=== PATIENT | male | born 1995 | race Caucasian/White ===

== ENCOUNTER 2021-03-31 10:09 | Outpatient (CLI) | payer OTHER ==
[2021-04-01 23:32] VITALS: BP 100/60
--- NOTE | 2021-04-01 23:32 | SLEEP CARE CONSULTATION ---
Information from patient questionnaire entered by Tony Giles. I have reviewed and concur with the information entered by Tony Giles. This document represents the service I personally performed and the decisions made by me, Delmy Linda MD, [facility]. History of Present Illness Service Date and Time: 03/31/2021 1009 Reason for Visit: New patient Chief Complaint: reports: Unrefreshed sleep, Snoring, Observed pauses in breathing, Frequent awakenings at night Date of Onset: + 2 years Usual bedtime: 1000 PM Time it takes to fall asleep: Varies Snores at night: Yes Observed to quit breathing while asleep: Yes Sleeps alone due to snoring: No Reasons for waking at night: reports: Choking, Gasping for air, Other (Noise, consistent nightmares) Toss, Turn, or Twitch while sleeping: Yes Recalls having dreams: Yes Usually gets out of bed at: 630 - 730 Feels refreshed in the morning: No Morning headache: No Sleepy or fatigued during the day: Yes Ever fallen asleep while driving: No Takes day naps: No Dreams during day naps: Yes Prior sleep studies: No Additional HPI information: I had the pleasure of seeing Mr. Ovalle today regarding the possibility of him having a sleep disorder. As you know, he is a 25 year old gentleman who complains of insomnia, frequent awakenings, unrefreshed sleep, loud snore, and observed apneas. The patient tells me that he normally goes to bed around 10 pm, and it takes him approximately 30 minutes to fall asleep. He takes hydroxyzine. He has been told that he snores loudly and irregularly at night. He has also been observed to stop breathing in his sleep. He can recall waking up on the average of 3+ times during the night. Most of the time he wakes up because of nightmares. He has never awakened because of his own snoring, choking, and having or gasp for air. There is a lot of tossing and turning in his sleep. He has somniloquy (sleep talking) but not somnambulism (sleep walking). Generally he can recall having dreams including nightmares. In the morning he usually gets up out of the bed around 6:30 7:30 a.m. not feeling refreshed nor rested. He usually does not have a morning headache. During the day he complains of feeling sleepy and fatigued. His score on [place] Sleepiness Scale is 10 out of 24. He never has fallen asleep while driving nor has had any accident due to sleepiness. He usually does not take naps during the day. He reports occasionally having impaired concentration during the day. - Parasomnia Symptoms Ever been unable to move upon waking from sleep: Yes Ever felt weak in the knees when startled or emotional: No Bothered by creepy, crawly, restless sensations in legs: Yes (? 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 Patient is Single and lives in [place]. Have you smoked in the past 12 months: No Alcohol use: Yes Alcohol amount and frequency: 2-3, 1-2 times per month Caffeine use: No Allergies and Home Medications Drug allergies reviewed: Yes Home medication list reviewed: Yes Review of Systems Weight gain over past 5 years: 20 Cardiovascular: reports: high blood pressure, palpitations, leg or foot swelling Respiratory: denies: shortness of breath, wheeze, sputum production, chronic cough, other Gastrointestinal: reports: difficulty swallowing, diarrhea Urinary: denies: incontinence, frequency, urgency, impotence, other Neurological: denies: headaches, seizure, head trauma, disorientation, speech dysfunction, gait or balance problems, fainting or unconsciousness, other Psychiatric: reports: anxiety, depression Ear/Nose/Throat: reports: sinus problems Endocrine: denies: thyroid disease, history of goiter, sluggishness, too hot or cold, excessive thirst, increased appetite, increased urination, unexplained weakness, other Musculoskeletal: reports: neck pain, back pain Immunologic: reports: itching Physical Exam Vital signs obtained and entered by: Dr. Linda Blood Pressure: 100/60 Cuff size: regular Heart Rate: 80 O2 Saturation: 99 Height: 5 ft 8 in Weight: 180 lb Body Mass Index: 27.3 BMI Classification: Overweight Neck circumference: 15.5 Mood/affect: Normal HEENT: No craniofacial malformation Nostrils: patent to airflow Turbinates: normal Septum: midline Mouth and throat: narrow oropharynx Soft palate: long Hard palate: normal Uvula: normal Uvula visualization: 50% Mallampati Class II Tongue: normal in size Tonsils: small Chin and jaw: normal size and position Neck: normal w/o lymphadenopathy or thyromegaly Heart: regular rate and rhythm Impression and Plan IMPRESSION: 1. Obstructive Sleep Apnea-Hypopnea Syndrome, as suggested by history of loud and irregular snoring, observed cessation of breath while asleep, frequent awakenings during the night, unrefreshed sleep, cognitive impairment, and daytime hypersomnolence. Narrow oropharynx and obesity are common predisposing factors for obstructive sleep apnea-hypopnea syndrome. Untreated obstructive sleep apnea can also cause hypertension. I recommend proceeding to polysomnography to confirm the diagnosis and to assess severity. Due to the long waiting list for the in-laboratory polysomnography, a home sleep apnea test (HSAT) will first be conducted. Plan: 1. Schedule a home sleep apnea test (HSAT). 2. Avoid long distance driving or when feeling sleepy. 3. Avoid alcohol, sedative and muscle relaxant around bedtime. 4. Return for follow up after the test. Visit Type: In Office Time Spent with Patient (minutes): 15 Provider Statement: I spent 100% of the Face to Face Visit with the patient with greater than 50% spent counseling the patient and coordination of care.
== END 2021-03-31 10:10 | disposition home or self-care (01) ==
LOC: SC 10:09
PROVIDERS: ATTEND Internal Medicine Pulmonary Disease
DX: G47.10 Hypersomnia, unspecified (principal); R06.81 Apnea, not elsewhere classified; R06.83 Snoring; R41.89 Other symptoms and signs involving cognitive functions and awareness; G47.8 Other sleep disorders; E66.3 Overweight; Z68.27 Body mass index [BMI] 27.0-27.9, adult
CPT/HCPCS: 99202; 99212

== ENCOUNTER 2021-04-02 15:07 | Outpatient (CLI) | payer OTHER | END 2021-04-02 15:08 | disposition home or self-care (01) | LOC: SC 15:07 | PROVIDERS: ATTEND Internal Medicine Pulmonary Disease | DX: G47.10 Hypersomnia, unspecified (principal); R06.83 Snoring; R06.81 Apnea, not elsewhere classified; G47.8 Other sleep disorders; E66.3 Overweight; Z68.27 Body mass index [BMI] 27.0-27.9, adult | CPT/HCPCS: 95806 ==

== ENCOUNTER 2021-04-21 09:03 | Outpatient (CLI) | payer OTHER ==
--- NOTE | 2021-04-21 12:55 | SLEEP CARE CONSULTATION ---
Information from patient questionnaire entered by Tata Gonzalez. I have reviewed and concur with the information entered by Tata Gonzalez. This document represents the service I personally performed and the decisions made by me, Delmy Linda MD, [facility]. History of Present Illness Service Date and Time: 04/21/2021 09 Initial [place] Sleepiness Scale score: 10 (in 2020) Current [place] Sleepiness Scale score: 14 Additional HPI information: HPI: Mr. Ovalle returned for follow up of the sleep study he had on 04/02/21. The test showed no significant sleep-disordered breathing (AHI was 1.6). The patient slept mostly in prone position. He slept very little on his back and the supine AHI was 6.8. There was no hypoxemia. The patient was informed of these findings. I explained to him that the test was negative for sleep-disordered breathing except when he slept supine. He tells me that he does not sleep on his back. Sleep Study - Results Type of Sleep Study: Home sleep study Allergies and Home Medications Drug allergies reviewed: Yes Home medication list reviewed: Yes Review of Systems Review of systems same as previous: Yes Physical Exam Weight: 180 lb Impression and Plan IMPRESSION: 1. Insomnia, mild involving sleep maintenance according to the patient. No sleep-disordered breathing demonstrated by the home sleep apnea test (HSAT). Other sleep disrupting conditions cannot be determined by the test. The patient is quite happy with the result. PLAN: 1. Avoid sleeping supine. 2. Return for a follow up on as needed basis. Visit Type: In Office Time Spent with Patient (minutes): 12 Provider Statement: I spent 100% of the Face to Face Visit with the patient with greater than 50% spent counseling the patient and coordination of care.
== END 2021-04-21 09:04 | disposition home or self-care (01) ==
LOC: SC 09:03
PROVIDERS: ATTEND Internal Medicine Pulmonary Disease
DX: G47.00 Insomnia, unspecified (principal)
CPT/HCPCS: 99212